=== PATIENT | female | born 1990 | race American Indian/Alaskan Native ===

== ENCOUNTER 2017-04-16 04:44 | Emergency (ER) | payer MEDICAID ==
[2017-04-16] MEDS ORDERED: KEPPRA 1,000 MG/NS 0.75% 100ML 1,000 MG/100 ML BAG IV ONE (06:53)
[2017-04-16] MEDS ORDERED: TOPAMAX PO ONE ×2 (06:53→08:36)
--- NOTE | 2017-04-16 07:32 | Emergency Department Report ---
ED Seizure HPI - General Chief Complaint: Seizure Stated Complaint: SEIZURE Time Seen by Provider: 04/16/17 06:44 Source: EMS Mode of arrival: Stretcher Limitations: Altered Mental Status - History of Present Illness Initial Comments: 26-year-old female with a past medical history asthma, hypertension, and seizure disorder presents to Hospital status post seizure 3. No incontinence of tongue laceration. Patient denies any pain. Patient has been compliant with your Topamax 100 mg twice a day but did not have her evening dose last night. Patient states she also had a seizure yesterday. Patient was in the past but discontinued in August because it was ineffective and causes her to be very drowsy. Patient last had a EEG in August. Her neurologist is [place] [facility]. - Related Data Home Medications Medication Instructions Recorded Confirmed Last Taken Topiramate [Topamax] 100 mg PO BID 04/16/17 04/16/17 04/15/17 Previous Rx's Medication Instructions Recorded Last Taken Type Topiramate [Topamax TAB] 150 mg PO BID #180 tablet 04/16/17 Unknown Rx Allergies Allergy/AdvReac Type Severity Reaction Status Date / Time amoxicillin [Amoxicillin] Allergy Rash Verified 05/17/13 04:31 Penicillins Allergy Rash Verified 05/17/13 04:31 sulfamethoxazole Allergy Swelling Verified 10/17/13 14:03 [From Bactrim] trimethoprim [From Bactrim] Allergy Swelling Verified 10/17/13 14:03 ED Review of Systems ROS: Stated complaint: SEIZURE Other details as noted in HPI Comment: All other systems reviewed and negative Other: Constitutional: No fevers chills or weight loss Eyes: No eye pain visual changes or discharge ENT: No ear pain or throat pain Neck: Denies pain Respiratory: Denies cough wheezing shortness of breath Cardiovascular: Denies chest pain, palpitations, syncope GI: Denies abdominal pain, nausea, vomiting, diarrhea : Denies dysuria Musculoskeletal: Denies back pain Skin: Denies rash, lesions, erythema Neurologic: Denies headache, numbness, weakness Psychiatric: Denies suicidal ideation, hallucinations ED Past Medical Hx - Past Medical History Previous Medical History?: Yes Hx Hypertension: Yes (since age 18) Hx Diabetes: No Hx Deep Vein Thrombosis: No Hx Renal Disease: No Hx Sickle Cell Disease: No Hx Seizures: Yes Hx Asthma: Yes Hx HIV: No - Surgical History Additional Surgical History: C section - Social History Smoking Status: Never Smoker - Medications Home Medications: Home Medications Medication Instructions Recorded Confirmed Last Taken Type Topiramate [Topamax TAB] 150 mg PO BID #180 tablet 04/16/17 Unknown Rx Topiramate [Topamax] 100 mg PO BID 04/16/17 04/16/17 04/15/17 History ED Physical Exam - General Limitations: Altered Mental Status - Other Other exam information: General: No limitations, patient is alert in no acute distress Head exam: Atraumatic, normocephalic Eyes exam: Normal appearance, pupils equal reactive to light, extraocular movements intact ENT: Moist mucous membrane, normal oropharynx, no tongue lacerations Neck exam: Normal inspection, full range of motion, no meningismus nontender Respiratory exam: Clear to auscultation bilateral, no wheezes, rales, crackles Cardiovascular: Normal rate and rhythm, normal heart sounds Abdomen: Soft, nondistended, and nontender, with normal bowel sounds, no rebound, or guarding Extremity: Full range of motion normal inspection no deformity Back: Normal Inspection, full range of motion, no tenderness Neurologic: Alert, oriented x3, cranial nerves intact, no motor or sensory deficit Psychiatric: normal affect, normal mood Skin: Warm, dry, intact ED Course Vital Signs 04/16/17 04/16/17 04/16/17 05:01 06:51 08:34 Temperature 98 F 98 F 98.3 F Pulse Rate 92 H 83 78 Respiratory 18 17 Rate Blood Pressure 148/93 143/97 117/88 O2 Sat by Pulse 100 100 Oximetry 04/16/17 10:14 Temperature Pulse Rate 82 Respiratory 18 Rate Blood Pressure 168/88 O2 Sat by Pulse Oximetry - Reevaluation(s) Reevaluation #1: 04/16/17 07:31 Topamax and Keppra have been ordered ED Medical Decision Making - Lab Data Result diagrams: 04/16/17 07:15 04/16/17 07:15 Lab Results 04/16/17 04/16/17 04/16/17 Range/Units 07:15 07:15 07:15 WBC 6.0 (4.5-11.0) K/mm3 RBC 4.76 (3.65-5.03) M/mm3 Hgb 10.5 (10.1-14.3) gm/dl Hct 34.1 (30.3-42.9) % MCV 72 L (79-97) fl MCH 22 L (28-32) pg MCHC 31 (30-34) % RDW 17.7 H (13.2-15.2) % Plt Count 229 (140-440) K/mm3 Lymph % (Auto) 39.1 H (13.4-35.0) % [place] % (Auto) 9.3 H (0.0-7.3) % Eos % (Auto) 4.9 H (0.0-4.3) % Baso % (Auto) 0.4 (0.0-1.8) % Lymph # 2.4 (1.2-5.4) K/mm3 [place] # 0.6 (0.0-0.8) K/mm3 Eos # 0.3 (0.0-0.4) K/mm3 Baso # 0.0 (0.0-0.1) K/mm3 Seg Neutrophils % 46.3 (40.0-70.0) % Seg Neutrophils # 2.8 (1.8-7.7) K/mm3 Sodium 140 (137-145) mmol/L Potassium 3.9 (3.6-5.0) mmol/L Chloride 103.2 (98-107) mmol/L Carbon Dioxide 24 (22-30) mmol/L Anion Gap 17 mmol/L BUN 10 (7-17) mg/dL Creatinine 0.5 L (0.7-1.2) mg/dL Estimated GFR > 60 ml/min BUN/Creatinine Ratio 20.00 % Glucose 90 (65-100) mg/dL Calcium 8.6 (8.4-10.2) mg/dL Magnesium 1.90 (1.7-2.3) mg/dL HCG, Qual Negative (Negative) - Medical Decision Making No further seizure activity. Patient remained stable. Will be discharged with increase in Topamax to 150 twice a day - Differential Diagnosis seizure, medication noncompliance, electrolyte abnormality Critical Care Time: No Critical care attestation.: If time is entered above; I have spent that time in minutes in the direct care of this critically ill patient, excluding procedure time. ED Disposition Clinical Impression: Seizure Disposition: DC-01 TO HOME OR SELFCARE Is pt being admited?: No Does the pt Need Aspirin: No Condition: Stable Instructions: Recurrent Seizures Adult (ED) Additional Instructions: Follow-up with the neurologist for further management of your seizure disorder. Increase your Topamax to 150 mg twice a day. Prescriptions: Topiramate [Topamax TAB] 150 mg PO BID #180 tablet Referrals: your, neurologist [Other] - 3-5 Days Time of Disposition: 10:48
[2017-04-16 07:40] LABS: Basophils % (Auto) 0.4 % (0.0-1.8); Eosinophils % (Auto) 4.9 % (0.0-4.3); Hematocrit 34.1 % (30.3-42.9); Hemoglobin 10.5 gm/dl (10.1-14.3); Mean Corpuscular HGB Conc 31 % (30-34); Mean Corpuscular Volume 72 fl (79-97); Platelet Count 229 K/mm3 (140-440); Red Blood Count 4.76 M/mm3 (3.65-5.03); Red Cell Distribution Width 17.7 % (13.2-15.2)
[2017-04-16 07:52] LABS: Mean Corpuscular Hemoglobin 22 pg (28-32)
[2017-04-16 07:55] LABS: Anion Gap 17 mmol/L; Blood Urea Nitrogen 10 mg/dL (7-17); Calcium 8.6 mg/dL (8.4-10.2); Carbon Dioxide 24 mmol/L (22-30); Chloride 103.2 mmol/L (98-107); Glucose 90 mg/dL (65-100); Potassium 3.9 mmol/L (3.6-5.0); Sodium 140 mmol/L (137-145)
[2017-04-16 10:15] VITALS: BP 168/88
== END 2017-04-16 11:10 | disposition home or self-care (01) ==
LOC: ED 04:44
DX: G40.909 Epilepsy, unspecified, not intractable, without status epilepticus (principal); I10 Essential (primary) hypertension; J45.909 Unspecified asthma, uncomplicated
CPT/HCPCS: 36415; 80048; 83735; 84703; 85025; 96365; 99284; J1953

== ENCOUNTER 2017-05-02 23:14 | Emergency (ER) | payer MEDICAID ==
[2017-05-03] MEDS ORDERED: BENADRYL IM ONE (00:56)
[2017-05-03] MEDS ORDERED: TORADOL IM ONE (00:56)
[2017-05-03] MEDS ORDERED: REGLAN IM ONE (00:56)
[2017-05-03] MEDS ORDERED: NORCO 5/325 PO ONE (00:56)
[2017-05-03] MEDS ORDERED: TOPAMAX PO ONE (00:58)
--- NOTE | 2017-05-03 01:29 | Emergency Department Report ---
ED Seizure HPI - General Chief Complaint: Seizure Stated Complaint: SEIZURE Time Seen by Provider: 05/03/17 00:42 Source: patient Mode of arrival: Stretcher Limitations: No Limitations - History of Present Illness Initial Comments: 26 erythema the past medical history asthma, hypertension, and seizures presents with possible complaint of seizure at around 3 PM. Patient last took her seizure medication at 3 AM and was scheduled taken at 3 PM but had a seizure prior to taking her medication. Preceding symptoms include headache and her body tensing up. Now patient complains of a right-sided headache consistent with her post seizure migraines. Headache is moderate in intensity, exacerbated by light. No nausea or vomiting reported. She denies tongue laceration or urinary incontinence. Patient was here on April 16 and Topamax increased from 100-150 twice a day. Her neurologist is [facility]. - Related Data Home Medications Medication Instructions Recorded Confirmed Last Taken Topiramate [Topamax] 100 mg PO BID 04/16/17 04/16/17 05/03/17 00:10 Previous Rx's Medication Instructions Recorded Last Taken Type Topiramate [Topamax TAB] 150 mg PO BID #180 tablet 04/16/17 Unknown Rx HYDROcodone/APAP 5-325 [[place] 1 each PO Q6HR PRN #12 tablet 05/03/17 Unknown Rx 5/325] Allergies Allergy/AdvReac Type Severity Reaction Status Date / Time amoxicillin [Amoxicillin] Allergy Rash Verified 05/17/13 04:31 Penicillins Allergy Rash Verified 05/17/13 04:31 sulfamethoxazole Allergy Swelling Verified 10/17/13 14:03 [From Bactrim] trimethoprim [From Bactrim] Allergy Swelling Verified 10/17/13 14:03 ED Review of Systems ROS: Stated complaint: SEIZURE Other details as noted in HPI Comment: All other systems reviewed and negative Other: Constitutional: No fevers chills Eyes: No eye pain visual changes ENT: No ear pain or throat pain Neck: Denies pain Respiratory: Denies cough wheezing shortness of breath Cardiovascular: Denies chest pain, palpitations, syncope GI: Denies abdominal pain, nausea, vomiting, diarrhea : Denies dysuria Musculoskeletal: Denies back pain, joint swelling Skin: Denies rash, lesions, erythema Neurologic: As per HPI Psychiatric: Denies suicidal ideation, hallucinations ED Past Medical Hx - Past Medical History Previous Medical History?: Yes Hx Hypertension: Yes (since age 18) Hx Diabetes: No Hx Deep Vein Thrombosis: No Hx Renal Disease: No Hx Sickle Cell Disease: No Hx Seizures: Yes Hx Asthma: Yes Hx HIV: No - Surgical History Additional Surgical History: C section - Social History Smoking Status: Never Smoker - Medications Home Medications: Home Medications Medication Instructions Recorded Confirmed Last Taken Type Topiramate [Topamax TAB] 150 mg PO BID #180 tablet 04/16/17 Unknown Rx Topiramate [Topamax] 100 mg PO BID 04/16/17 04/16/17 05/03/17 00:10 History HYDROcodone/APAP 5-325 [[place] 1 each PO Q6HR PRN #12 tablet 05/03/17 Unknown Rx 5/325] ED Physical Exam - General Limitations: No Limitations - Other Other exam information: General: No limitations, patient is alert in no acute distress Head exam: Atraumatic, normocephalic Eyes exam: Normal appearance, pupils equal reactive to light, extraocular movements intact ENT: Moist mucous membrane, normal oropharynx Neck exam: Normal inspection, full range of motion, no meningismus nontender Respiratory exam: Clear to auscultation bilateral, no wheezes, rales, crackles Cardiovascular: Normal rate and rhythm, normal heart sounds Abdomen: Soft, nondistended, and nontender, with normal bowel sounds, no rebound, or guarding Extremity: Full range of motion normal inspection no deformity Back: Normal Inspection, full range of motion, no tenderness Neurologic: Alert, oriented x3, cranial nerves intact, no motor or sensory deficit Psychiatric: normal affect, normal mood Skin: Warm, dry, intact ED Course Vital Signs 05/02/17 05/02/17 05/02/17 23:50 23:56 23:58 Temperature 98 F 98 F Pulse Rate 73 73 Respiratory 18 18 18 Rate Blood Pressure 154/95 Blood Pressure 154/95 [Left] O2 Sat by Pulse 98 98 96 Oximetry - Reevaluation(s) Reevaluation #1: 05/03/17 01:28 Benadryl, Toradol, Reglan, [place], and Topamax ordered ED Medical Decision Making - Medical Decision Making Patient feels better with ED treatment. No further seizure activity. Headache improved - Differential Diagnosis migraine, seizure, med noncompliance Critical Care Time: No Critical care attestation.: If time is entered above; I have spent that time in minutes in the direct care of this critically ill patient, excluding procedure time. ED Disposition Clinical Impression: Seizure, Migraine Disposition: DC-01 TO HOME OR SELFCARE Is pt being admited?: No Does the pt Need Aspirin: No Condition: Stable Instructions: Recurrent Seizures Adult (ED), Acute Headache (ED) Additional Instructions: Take the medication as prescribed. Return if symptoms worsen. Follow with your neurologist for further management of your seizures Prescriptions: HYDROcodone/APAP 5-325 [[place] 5/325] 1 each PO Q6HR PRN #12 tablet PRN Reason: Pain Referrals: your neurologist, [Other] - 3-5 Days Forms: AMA Form Time of Disposition: 02:51
[2017-05-03 03:33] VITALS: BP 151/86
== END 2017-05-03 03:34 | disposition home or self-care (01) ==
LOC: ED 23:14
DX: G43.909 Migraine, unspecified, not intractable, without status migrainosus (principal); R56.9 Unspecified convulsions; I10 Essential (primary) hypertension
CPT/HCPCS: 96372; 99283; J1200; J1885; J2765

== ENCOUNTER 2019-04-25 12:23 | Emergency (ER) | payer MEDICAID, OTHER ==
[2019-04-25] MEDS ORDERED: ATIVAN ONE ×2 (12:53→13:03)
[2019-04-25] MEDS ORDERED: KEPPRA 1,000 MG/NS 0.75% 100ML 1,000 MG/100 ML BAG IV ONE ×2 (12:56→13:36)
[2019-04-25 12:59] LABS: Hematocrit 40.3 % (30.3-42.9); Hemoglobin 13.4 gm/dl (10.1-14.3); Mean Corpuscular HGB Conc 33 % (30-34); Mean Corpuscular Volume 84 fl (79-97); Platelet Count 139 K/mm3 (140-440); Red Cell Distribution Width 14.4 % (13.2-15.2)
--- NOTE | 2019-04-25 13:06 | Emergency Department Report ---
ED General Adult HPI - General Chief complaint: Seizure Stated complaint: SEIZURE Time Seen by Provider: 04/25/19 13:01 Source: EMS Mode of arrival: Stretcher Limitations: No Limitations - History of Present Illness Initial comments: She presents to the emergency department with a chief complaint of seizure like activity. Patient received Versed in route via EMS. Patient normally takes Keppra 1000 mg twice daily and Topamax for her seizures. Patient only states that her seizures under control of his medication regimen but if she misses a dose to use the results of seizures and this is what happened this morning. Patient states she was extremely busy of Thicker seizure medicine before going to work. -: Sudden Severity scale (0 -10): 0 Consistency: now resolved Improves with: none Worsens with: none Associated Symptoms: denies other symptoms Treatments Prior to Arrival: none - Related Data Home Medications Medication Instructions Recorded Confirmed Last Taken Topiramate [Topamax] 100 mg PO BID 04/16/17 04/16/17 05/03/17 00:10 Previous Rx's Medication Instructions Recorded Last Taken Type Topiramate [Topamax TAB] 150 mg PO BID #180 tablet 04/16/17 Unknown Rx HYDROcodone/APAP 5-325 [[place] 1 each PO Q6HR PRN #12 tablet 05/03/17 Unknown Rx 5/325] Allergies Allergy/AdvReac Type Severity Reaction Status Date / Time amoxicillin [Amoxicillin] Allergy Rash Verified 05/17/13 04:31 Penicillins Allergy Rash Verified 05/17/13 04:31 sulfamethoxazole Allergy Swelling Verified 10/17/13 14:03 [From Bactrim] trimethoprim [From Bactrim] Allergy Swelling Verified 10/17/13 14:03 ED Review of Systems ROS: Stated complaint: SEIZURE Other details as noted in HPI Comment: All other systems reviewed and negative Constitutional: denies: chills, fever Eyes: denies: eye pain, eye discharge, vision change ENT: denies: ear pain, throat pain Respiratory: denies: cough, shortness of breath, wheezing Cardiovascular: denies: chest pain, palpitations Endocrine: no symptoms reported Gastrointestinal: denies: abdominal pain, nausea, diarrhea Genitourinary: denies: urgency, dysuria, discharge Musculoskeletal: denies: back pain, joint swelling, arthralgia Skin: denies: rash, lesions Neurological: denies: headache, weakness, paresthesias Psychiatric: denies: anxiety, depression Hematological/Lymphatic: denies: easy bleeding, easy bruising ED Past Medical Hx - Past Medical History Hx Hypertension: Yes (since age 18) Hx Diabetes: No Hx Deep Vein Thrombosis: No Hx Renal Disease: No Hx Sickle Cell Disease: No Hx Seizures: Yes Hx Asthma: Yes Hx HIV: No - Surgical History Additional Surgical History: C section - Social History Smoking Status: Current Every Day Smoker Substance Use Type: None - Medications Home Medications: Home Medications Medication Instructions Recorded Confirmed Last Taken Type Topiramate [Topamax TAB] 150 mg PO BID #180 tablet 04/16/17 Unknown Rx Topiramate [Topamax] 100 mg PO BID 04/16/17 04/16/17 05/03/17 00:10 History HYDROcodone/APAP 5-325 [[place] 1 each PO Q6HR PRN #12 tablet 05/03/17 Unknown Rx 5/325] ED Physical Exam - General Limitations: No Limitations General appearance: alert, in no apparent distress - Head Head exam: Present: atraumatic, normocephalic - Eye Eye exam: Present: normal appearance, PERRL, EOMI - ENT ENT exam: Present: mucous membranes moist - Neck Neck exam: Present: normal inspection - Respiratory Respiratory exam: Present: normal lung sounds bilaterally. Absent: respiratory distress - Cardiovascular Cardiovascular Exam: Present: regular rate, normal rhythm. Absent: systolic murmur, diastolic murmur, rubs, gallop - GI/Abdominal GI/Abdominal exam: Present: soft, normal bowel sounds. Absent: distended, tenderness - Extremities Exam Extremities exam: Present: normal inspection - Back Exam Back exam: Present: normal inspection - Neurological Exam Neurological exam: Present: alert, oriented X3, CN II-XII intact. Absent: motor sensory deficit - Psychiatric Psychiatric exam: Present: normal affect, normal mood - Skin Skin exam: Present: warm, dry, intact, normal color. Absent: rash ED Course Vital Signs 04/25/19 04/25/19 04/25/19 12:57 13:00 13:16 Pulse Rate 87 85 90 Respiratory 16 16 16 Rate Blood Pressure 165/117 157/113 158/112 [Left] O2 Sat by Pulse 98 98 Oximetry 04/25/19 04/25/19 14:00 15:00 Pulse Rate 88 87 Respiratory 20 20 Rate Blood Pressure 157/101 147/90 [Left] O2 Sat by Pulse 98 98 Oximetry ED Medical Decision Making - Lab Data Result diagrams: 04/25/19 12:35 04/25/19 12:35 Lab Results 04/25/19 04/25/19 04/25/19 Range/Units 12:35 12:35 12:35 WBC 5.7 (4.5-11.0) K/mm3 RBC 4.80 (3.65-5.03) M/mm3 Hgb 13.4 (10.1-14.3) gm/dl Hct 40.3 (30.3-42.9) % MCV 84 (79-97) fl MCH 28 (28-32) pg MCHC 33 (30-34) % RDW 14.4 (13.2-15.2) % Plt Count 139 L (140-440) K/mm3 Sodium 141 (137-145) mmol/L Potassium 3.3 L (3.6-5.0) mmol/L Chloride 102.8 (98-107) mmol/L Carbon Dioxide 23 (22-30) mmol/L Anion Gap 19 mmol/L BUN 9 (7-17) mg/dL Creatinine 0.6 L (0.7-1.2) mg/dL Estimated GFR > 60 ml/min BUN/Creatinine Ratio 15 % Glucose 93 (65-100) mg/dL POC Glucose (70-105) Calcium 9.2 (8.4-10.2) mg/dL HCG, Qual Negative (Negative) 04/25/19 Range/Units 15:30 WBC (4.5-11.0) K/mm3 RBC (3.65-5.03) M/mm3 Hgb (10.1-14.3) gm/dl Hct (30.3-42.9) % MCV (79-97) fl MCH (28-32) pg MCHC (30-34) % RDW (13.2-15.2) % Plt Count (140-440) K/mm3 Sodium (137-145) mmol/L Potassium (3.6-5.0) mmol/L Chloride (98-107) mmol/L Carbon Dioxide (22-30) mmol/L Anion Gap mmol/L BUN (7-17) mg/dL Creatinine (0.7-1.2) mg/dL Estimated GFR ml/min BUN/Creatinine Ratio % Glucose (65-100) mg/dL POC Glucose 79 (70-105) Calcium (8.4-10.2) mg/dL HCG, Qual (Negative) - Medical Decision Making The patient received 2.5 mg of Versed in route via EMS On the patient's arrival she proceeded to have another seizure and was given 2 mg Ativan Was followed by another seizure so the patient was given another 2 mg Ativan IV Keppra was also given Critical care attestation.: If time is entered above; I have spent that time in minutes in the direct care of this critically ill patient, excluding procedure time. ED Disposition Clinical Impression: Seizure Disposition: DC-01 TO HOME OR SELFCARE Is pt being admited?: No Does the pt Need Aspirin: No Condition: Stable Instructions: Recurrent Seizures Adult (ED) Additional Instructions: return if worse [facility] [Primary Care Provider] - 3-5 Days [facility] [Provider Group] - 3-5 Days [facility] [Provider Group] - 3-5 Days REINA SIMMONS MD [Staff Physician] - 3-5 Days Time of Disposition: 15:28
[2019-04-25 13:11] LABS: BUN/Creatinine Ratio 15; Blood Urea Nitrogen 9 mg/dL (7-17); Calcium 9.2 mg/dL (8.4-10.2); Hemolysis Index 11
[2019-04-25] MEDS ORDERED: ATIVAN IV ONE ×2 (13:36)
[2019-04-25 17:24] LABS: Alanine Aminotransferase 12 units/L (7-56); Albumin 3.8 g/dL (3.9-5); BUN/Creatinine Ratio 15; Blood Urea Nitrogen 9 mg/dL (7-17); Calcium 9.3 mg/dL (8.4-10.2); Hemolysis Index 9
[2019-04-25 17:35] LABS: Hepatitis B Surface Antigen Non-Reactive (Negative); Hepatitis C Virus Antibody Non-Reactive (NonReactive)
[2019-04-25 19:23] VITALS: BP 159/98
== END 2019-04-25 19:33 | disposition home or self-care (01) ==
LOC: ED 12:23
DX: R56.9 Unspecified convulsions (principal); J45.909 Unspecified asthma, uncomplicated; F17.200 Nicotine dependence, unspecified, uncomplicated; I10 Essential (primary) hypertension; Z79.899 Other long term (current) drug therapy; Z88.1 Allergy status to other antibiotic agents; Z88.0 Allergy status to penicillin; Z88.2 Allergy status to sulfonamides
CPT/HCPCS: 36415; 80048; 80053; 80074; 82962; 84703; 85027; 87806; 96374; 96375; 99284; J1953; J2060